=== PATIENT | female | born 1940 | race American Indian/Alaskan Native ===

== ENCOUNTER 2017-12-14 06:29 | Day surgery (SDC) | payer MEDICARE ==
[2014-11-08 15:26] VITALS: PULSE 73
[2017-08-20 10:06] VITALS: BMI 38.9
--- NOTE | 2017-12-12 04:53 | HP ---
Copied To: Nilson Cortes MD Attending MD: Nilson Cortes MD REASON FOR ADMISSION: Left heart cath, possible angioplasty. Evaluation for AICD as well. BRIEF CLINICAL HISTORY: This is a 77-year-old female with past medical history significant for cardiomyopathy, history of cardiac catheterization in 1994, nonobstructive coronary artery disease, history of hypertension, history of atrial fibrillation, on Coumadin, admitted for left heart catheterization because of the deterioration of LV function and evaluation for AICD placement and rule out ischemia. The patient denies any chest pain, but complained of shortness of breath and dyspnea on exertion. PAST MEDICAL HISTORY: Significant for cardiomyopathy, hypertension, diabetes, hyperlipidemia, and obesity. PREVIOUS CARDIAC WORKUP: As follows: The patient had a cardiac catheterization in 1994 that shows nonobstructive coronary artery disease, cardiomyopathy, history of echo in 2015, ejection fraction 50%, stress test in 2015, EF 40%. Then, the patient had a MUGA scan in 2016 that shows ejection fraction of 39%. The patient had a followup stress test in 07/2017, ejection fraction 26%. Repeat MUGA in 09/2017, ejection fraction 32%. Echo in 08/2017 showed ejection fraction 40%. Most recent stress test 08/20/2017 shows a fixed defect, abnormal deterioration of LV function from previous study. Echo done dated 09/11/2017 showed ejection fraction 40%, moderate mitral regurgitation, and trace pulmonary insufficiency. SOCIAL HISTORY: Denies any smoking. Denies any history of alcohol abuse. CURRENT MEDICATIONS: The patient is taking potassium chloride 20 mEq daily, omeprazole 20 mg daily, magnesium oxide 500 mg p.o. b.i.d., losartan 100 mg daily, furosemide 40 mg daily, folic acid 1 mg daily, digoxin 0.125 mg daily, Coreg 25 mg p.o. b.i.d., metformin 1 g twice a day, simvastatin 20 mg daily, Coumadin 4 mg daily. REVIEW OF SYSTEMS: As per HPI. PHYSICAL EXAMINATION VITAL SIGNS: As follows: Height of the patient 5 feet 3 inches, weight of the patient 220 pounds, body mass index 39 kg/sq m. HEENT: PERRLA. Extraocular muscles intact. NECK: Supple. No carotid bruits or thyromegaly. CHEST: Clear to auscultation. HEART: S1 and S2, regular. ABDOMEN: Soft. EXTREMITIES: Clubbing and cyanosis negative. IMPRESSION: A 77-year-old female with past medical history significant for cardiomyopathy, diabetes, hypertension, hyperlipidemia, further deterioration of left ventricular function. Most recent MUGA shows ejection fraction 32%, fixed defect, abnormal stress test. RECOMMENDATIONS: We will proceed for cardiac catheterization. Risks, benefits, and alternatives were discussed with the patient. The patient agreed. We will proceed for cardiac catheterization. Further recommendation after the cardiac catheterization. We will follow with you. Thank you, , for providing us the opportunity in taking care of the patient, Becka Squires. Nilson Cortes MD cc: [email or web address]/ Ying MTDD
[2017-12-14 07:22] LABS: BASO # 0.03 K/mm3 (0.0-2.0); BASO % 0.3 % (0.0-3.0); EOS # 0.1 (0.0-0.7); EOS % 1.4 % (1.5-5.0); GRAN # 5.23 (1.4-6.5); GRAN % 60.3 % (50.0-68.0); HEMOGLOBIN 11.2 g/dL (12.0-16.0); LYMPH # 2.6 (1.2-3.4); LYMPH % 30.4 % (22.0-35.0); MEAN CELL VOLUME 83.7 fl (80.0-105.0); MEAN CORPUSCULAR HEMOGLOBIN 26.9 pg (25.0-35.0); MEAN CORPUSCULAR HGB CONC 32.1 g/dl (31.0-37.0); MEAN PLATELET VOLUME 10.3 fl (7.0-11.0); MONO # 0.7 (0.1-0.6); MONO % 7.6 % (1.0-6.0); RBC 4.17 10^6/uL (3.5-6.1); RED CELL DISTRIBUTION WIDTH 14.1 % (11.5-14.5); WHITE BLOOD COUNT 8.7 10^3/ul (4.5-11.0)
[2017-12-14 07:30] VITALS: RESP 20; TEMP 98.2; O2SAT 98
[2017-12-14 07:34] LABS: INR 1.14; PROTHROMBIN TIME 13.1 SECONDS (9.4-12.5)
[2017-12-14 07:39] LABS: BLOOD UREA NITROGEN 15 mg/dL (7-21); CALCIUM 9.7 mg/dL (8.4-10.5); GFR AFRICAN-AMERICAN > 60; GFR NON-AFRICAN AMERICAN > 60; HDL CHOLESTEROL 40 mg/dL (29-60)
[2017-12-14 07:50] LABS: LDL CHOLESTEROL 69 mg/dL (0-129)
[2017-12-14] MEDS ORDERED: Phenylephrine 10 mg/ml Inj ONE (08:09)
[2017-12-14] MEDS ORDERED: Iodixanol 320 MG/ML 100 ML BOTTLE IV ONE (08:09)
[2017-12-14] MEDS ORDERED: Iohexol 350mgl/ml 50 ML ONE (08:09)
[2017-12-14] MEDS ORDERED: Lidocaine PF 2% (5 ml) Inj (For Cardiac Arrhy) ONE (08:09)
[2017-12-14] MEDS ORDERED: Iodixanol 320 MG/ML 200 ML BOTTLE IV ONE (08:09)
[2017-12-14] MEDS ORDERED: Nitroglycerin 50mg in D5W 0 MG/0 ML BOTTLE IV ONE (08:10)
[2017-12-14] MEDS ORDERED: Verapamil 0 ML ONE (08:11)
[2017-12-14] MEDS ORDERED: Midazolam 2 MG/2 ML VIAL ONE (08:52)
[2017-12-14] MEDS ORDERED: Sodium Chloride 0.9% 1,000 ML IV SCH (09:45)
--- NOTE | 2017-12-14 09:48 | CPOSTOP ---
Copied To: Nilson Cortes MD Attending MD: Nilson Cortes MD DATE: 12/14/2017 CARDIOVASCULAR LAB POSTPROCEDURE NOTE DICTATING PHYSICIAN: Nilson Cortes MD. TELEPHONE SALES AGENT: Nilson Cortes MD. CARDIOLOGY COORDINATOR: Jonathan De La Fuente, tool repair technician, [facility]. TYPE OF ANESTHESIA: Moderate conscious sedation. Total 2 mg of Versed, 100 of fentanyl given. Periodically started 1 mg of Versed, 50 of fentanyl. PRE-PROCEDURE DIAGNOSES: Cardiomyopathy, rule out ischemic cardiomyopathy for automatic implantable cardioverter-defibrillator placement. PROCEDURE PERFORMED: Left heart catheterization. FINDINGS: Nonobstructive coronary artery disease. FINAL DIAGNOSIS: Nonobstructive coronary artery disease. POST PROCEDURE CONDITION: Post procedure, the patient's condition is stable. VASCULAR ACCESS SITE: Right femoral groin, right femoral artery. CLOSURE DEVICE: AngioSeal. TOTAL RADIATION DOSE: 8000.45 milligray unit. TOTAL FLUORO TIME: 1.9 minutes. Nilson Cortes MD [facility]
[2017-12-14 11:02] VITALS: BP 128/41; PULSE 67
--- NOTE | 2017-12-14 17:36 | CARD ---
APPROVED REPORT Date of service: 12/14/2017 Procedure(s) performed: Left Heart Catheterization HISTORY The patient is a 77 year-old female with a history of : most recent EF: 32%. (EF Method: RADIONUCLIDE), previous CHF, diabetes mellitus with oral treatment , previous diagnostic cath, tobacco history() : The patient is a former smoker , hypertension , dyslipidemia , cerebrovascular disease , abnormal stress test with detrioration of LV Fx. INDICATION The indication(s) include : positive stress test. CASE TECHNIQUE The patient was brought electively to the Cardiac Catheterization Laboratory in a fasting state and was prepped and draped in a sterile manner. The right femoral groin was infiltrated with 2% Lidocaine subcutaneous anesthesia. A 6 Fr x 11 cm Jeri sheath was inserted into the right femoral artery without difficulty. Coronary angiography was performed using coronary diagnostic catheters. The left coronary system was accessed and visualized with a Diagnostic , 6F JL4 CATH DXT 100 CM catheter. The right coronary system was accessed and visualized with a Diagnostic ,6F JR 4 CATH DXT 100 CM catheter. The left ventricle was accessed and visualized with a 6F JR 4 CATH DXT 100 CM catheter. Left ventricular/Aortic Valve gradient assessed on pullback. Left ventriculogram was performed in CEE projection. Closure device was deployed with a 6 Fr Angio-Seal without any complications. The patient tolerated the procedure well and there were no complications associated with the procedure. Vessel Analysis The patient's coronary anatomy is right dominant. The left main coronary artery is a large size vessel with diffuse calcification noted throughout this vessel and without significant stenosis. The left main trifurcates to the left anterior descending, circumflex, and ramus. The left anterior descending artery is a medium size vessel with diffuse calcification noted throughout this vessel and without significant stenosis. There is a 30-40% stenosis in the mid segment. The first diagonal branch is a medium size vessel with diffuse calcification noted throughout this vessel and without significant stenosis. The second diagonal branch is a medium size vessel with diffuse calcification noted throughout this vessel and without significant stenosis. The circumflex artery is a medium size vessel with diffuse calcification noted throughout this vessel and without significant stenosis. The first obtuse marginal branch is a medium size vessel with diffuse calcification noted throughout this vessel and without significant stenosis. There is a 40-50% stenosis in the ostial segment. The second obtuse marginal branch is a medium size vessel with diffuse calcification noted throughout this vessel and without significant stenosis. The ramus intermedius artery is a medium size vessel with diffuse calcification noted throughout this vessel and without significant stenosis. The right coronary artery is a medium size vessel with diffuse calcification noted throughout this vessel and without significant stenosis. There is a 55% stenosis in the mid segment. The right posterior descending artery is a medium size vessel with diffuse calcification noted throughout this vessel and without significant stenosis. The right posterolateral branch is a medium size vessel with diffuse calcification noted throughout this vessel and without significant stenosis. Left Ventricle The left ventricle is enlarged in size with moderately decreased contractility. Non-Ischemic cardiomyopathy. The left ventricular ejection fraction is estimated to be 25-30%. The left ventricular end diastolic pressure is 20 mmHg. There was no gradient across the aortic valve upon pullback. Conclusion Non Obstructive CAD Non Ischemic CMP, EF-25-30%, EDP-20 mmof Hg. Recommendations Aggressive Medical TherapyCardiac Risk Reduction Program Weight Loss Reduction Program Resume coumadin, Pt/ INR to be checked with Dr. He on / Thursday Consider AICD implantation. CC; Drs. He / Renetta
--- NOTE | 2017-12-14 21:29 | CARD ---
APPROVED REPORT Date of service: 12/14/2017 EKG Measurement Heart [id number] <Conclusion> Sinus rhythm with 1st degree AV block Otherwise normal ECG
== END 2017-12-14 13:29 | disposition home or self-care (01) ==
LOC: CATH 06:29
PROVIDERS: ATTEND Internal Medicine Cardiovascular Disease
DX: I25.10 Atherosclerotic heart disease of native coronary artery without angina pectoris (principal); I11.0 Hypertensive heart disease with heart failure; I50.9 Heart failure, unspecified; E11.9 Type 2 diabetes mellitus without complications; E78.5 Hyperlipidemia, unspecified; Z87.891 Personal history of nicotine dependence
CPT/HCPCS: 36415; 80048; 80061; 85025; 85610; 85730; 86850; 86900; 93005; 93458; 99152; 99153; C1760; C1769; C2629; J1644; J2250; J3010; J7030; J7040; Q9966

== ENCOUNTER 2018-07-08 12:35 | Outpatient (CLI) | payer MEDICARE | END 2018-07-08 12:36 | disposition home or self-care (01) | LOC: RAD 12:35 ==